=== PATIENT | male | born 1960 | race Caucasian/White ===

== ENCOUNTER → 2020-09-12 12:00 | Outpatient (BNVA) | payer OTHER, SELFPAY | PROVIDERS: Family Provider Internal Medicine; PCP Internal Medicine; Visit Provider Nurse Practitioner Family | DX: Z20.822 Contact with and (suspected) exposure to COVID-19 (principal) | CPT/HCPCS: 87635 ==

== ENCOUNTER 2021-06-16 20:00 | Outpatient (CLI) | payer OTHER, SELFPAY | END 2021-06-16 20:01 | disposition home or self-care (01) | LOC: SLEEP 06-17 07:39 | PROVIDERS: Family Provider Internal Medicine; PCP Family Medicine; Visit Provider Family Medicine | DX: G47.33 Obstructive sleep apnea (adult) (pediatric) (principal) | CPT/HCPCS: 95811 ==

== ENCOUNTER 2021-09-03 09:33 | Outpatient (CLI) | payer OTHER, SELFPAY ==
--- NOTE | 2021-09-03 09:47 | USCV_ITS ---
Silver Cameron Age: 61 Gender: M : 1960 Exam Date: 09/03/2021 10:15 Ordering Phys: Ailyn Vernon MD Technologist: FROYLAN [place] [facility] [place]: DIZZINESS Risk Factors: Previous Vascular Surgery: Right Brachial BP: / Left Brachial BP: / Right Left Velocity (cm/s) Spectral Plaque Velocity (cm/s) Spectral Plaque Syst/Diast Broadening Syst/Diast Broadening 119.10/23.20 Prox CCA 170.90/ 34.20 126.80/23.20 Mid CCA 132.30/ 29.80 110.30/23.20 Distal CCA 102.50/ 27.60 77.20/ 15.40 Prox ICA 100.30/ 20.90 86.00/ 24.30 Mid ICA 71.50 / 27.50 82.70/ 23.20 Distal ICA 101.40/ 39.70 131.20 ECA 118.00 0.68 ICA/CCA 0.59 Antegrade Vertebral Antegrade 68.40/ 17.60 cm/s 39.30/ 11.10 cm/s Tri Subclavian Tri 139.8 98.10 0 CONCLUSIONS Right ICA stenosis <50%. Left ICA stenosis <50%. Mild atheromatous plaque left carotid bulb/ICA. Normal antegrade Doppler flow noted in the right vertebral artery. Normal antegrade Doppler flow noted in the left vertebral artery. Marco Antonio Smith MD (Electronically Signed) Final Date: 04 September 2021 10:34 S
== END 2021-09-03 09:34 | disposition home or self-care (01) ==
PROVIDERS: PCP Family Medicine; Visit Provider Family Medicine
DX: R42 Dizziness and giddiness (principal)
CPT/HCPCS: 93880

== ENCOUNTER 2023-06-16 08:24 | Outpatient (CLI) | payer OTHER, SELFPAY ==
--- NOTE | 2023-06-16 08:41 | FL_ITS ---
WS: [id number] Barium swallow and esophagram, 06/16/2023 Clinical Data: Difficulty swallowing Comparison: None. Fluoroscopy time: 1min [id number] # of spot films: 28 Findings: The patient swallowed the thick and thin barium, and it flowed through the hypopharynx without hesita tion. No stricture, mass, polyp or erosion was seen. The barium entered the esophagus and there was normal motility throughout. There were occasional tert iary contractions there was a small hiatal hernia. There is minimal reflux. No mass, polyp, ulcer or fistula was seen. Impression: 1. Small hiatal hernia with minimal reflux. 2. Occasional tertiary contractions.
== END 2023-06-16 08:25 | disposition home or self-care (01) ==
LOC: RAD 08:25
PROVIDERS: PCP Family Medicine; Visit Provider Family Medicine
DX: R13.10 Dysphagia, unspecified (principal); K44.9 Diaphragmatic hernia without obstruction or gangrene
CPT/HCPCS: 74220

== ENCOUNTER → 2024-05-30 07:54 | Outpatient (BNVA) | payer OTHER, SELFPAY | PROVIDERS: PCP Family Medicine; Visit Provider Surgery | DX: Z12.11 Encounter for screening for malignant neoplasm of colon (principal) | CPT/HCPCS: 99204 ==

== ENCOUNTER 2024-06-29 07:48 | Day surgery (SDC) | payer OTHER, SELFPAY ==
[2024-06-29 07:58] VITALS: BP 143/97; PULSE 74; RESP 16; TEMP 36.2; O2SAT 96
--- NOTE | 2024-06-29 08:01 | P.HP_ITS ---
Same Day Surgery H&P Indication for Procedure/HPI DATE OF PROCEDURE: June 29, 2024 CHIEF COMPLAINT/INDICATIONFOR SURGICAL PROCEDURE: need for screening colonoscopy PREOP DIAGNOSIS: need for screening colonoscopy PLANNED PROCEDURE: Operation Date: 06/29/24 09:15 Proposed Procedures p Colonoscopy 53287 G0121 Z12.11(Not Applicable) - Trevor Waterman MD Medications/Allergies* Home Medications ?Medication ?Instructions ?Recorded ?Confirmed ?Type aspirin 81 mg tablet,delayed 81 mg PO DAILY 08/17/19 0 06/26/24 History release (Adult Low Dose Aspirin) ibuprofen 200 mg capsule 200 mg PO Q6H PRN Pain 08/1606/26/24 History glipizide 5 mg tablet 5 mg PO BID 09/12/20 5 History empagliflozin 10 mg tablet 10 mg PO DAILY 11/11/21 History (Jardiance) niacin 250 mg tablet 250 mg PO BID 11/11/2106/26 History ezetimibe 10 mg tablet 10 mg PO DAILY 05/15/2405/29 History semaglutide 1 mg/dose (4 mg/3 mL) 4 mg SUBCUT .QWEEK 0 05/30/24 06/26/24 History subcutaneous pen injector (Ozempic) insulin glargine 100 unit/mL See Rx Instructions .Rout e .COMPLEX 06/27/24 06/27/24 History subcutaneous solution Allergies/Adverse Reactions Allergy/AdvReac Type Severity Reaction Status Date / Time Alpha-Gal Allergy ADR-Diarrhe Verified 06/26/24 09:09 (Jgxqfdofm-Yxpee-0,3-Gala a sunflower seeds Allergy Severe ALGY-Swell Uncoded 06/26/24 09:09 Lip/Tongue/Throat Pertinent History/Comorbid Conditions* Social History Smoking and tobacco/nicotine status: never used tobacco/nicotine Alcohol intake: current Alcohol intake frequency: holidays/special occasions only Substance/Drug Use: never Pertinent Exam Findings alert, oriented x 3, clear to auscultation bilaterally and regular rate & rhythm Recommendations Surgery/Procedure today Coding Level of Care Code Acute Code for Chg Fwd
--- NOTE | 2024-06-29 08:01 | W.PM.OPSFHP ---
Same Day Surgery H&P Indication for Procedure/HPI DATE OF PROCEDURE: June 29, 2024 CHIEF COMPLAINT/INDICATIONFOR SURGICAL PROCEDURE: need for screening colonoscopy PREOP DIAGNOSIS: need for screening colonoscopy PLANNED PROCEDURE: Operation Date: 06/29/24 09:15 Proposed Procedures p Colonoscopy 59553 G0121 Z12.11(Not Applicable) - Trevor Waterman MD Medications/Allergies* Home Medications ?Medication ?Instructions ?Recorded ?Confirmed ?Type aspirin 81 mg tablet,delayed 81 mg PO DAILY 08/17/19 06/26/24 History release (Adult Low Dose Aspirin) ibuprofen 200 mg capsule 200 mg PO Q6H PRN Pain 08/17/19 06/26/24 History glipizide 5 mg tablet 5 mg PO BID 09/12/20 06/26/24 History empagliflozin 10 mg tablet 10 mg PO DAILY 11/11/21 06/26/24 History (Jardiance) niacin 250 mg tablet 250 mg PO BID 11/11/21 06/26/24 History ezetimibe 10 mg tablet 10 mg PO DAILY 05/15/24 06/26/24 History semaglutide 1 mg/dose (4 mg/3 mL) 4 mg SUBCUT .QWEEK 05/30/24 06/26/24 History subcutaneous pen injector (Ozempic) insulin glargine 100 unit/mL See Rx Instructions .Route .COMPLEX 06/27/24 06/27/24 History subcutaneous solution Allergies/Adverse Reactions Allergy/AdvReac Type Severity Reaction Status Date / Time Alpha-Gal Allergy ADR-Diarrhe Verified 06/26/24 09:09 (Vnxmirzqj-Dxest-4,3-Gala a sunflower seeds Allergy Severe ALGY-Swell Uncoded 06/26/24 09:09 Lip/Tongue/Throat Pertinent History/Comorbid Conditions* Social History Smoking and tobacco/nicotine status: never used tobacco/nicotine Alcohol intake: current Alcohol intake frequency: holidays/special occasions only Substance/Drug Use: never Pertinent Exam Findings alert, oriented x 3, clear to auscultation bilaterally and regular rate & rhythm Recommendations Surgery/Procedure today Coding Level of Care Code Acute Code for Chg Yadi
--- NOTE | 2024-06-29 08:12 | ANES.PREANE2 ---
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 Michelle taken within 24 hours: N/A Was Clonidine taken within 24 hours: N/A Last intake: Intake Last Liquid Date 06/28/24 Last Liquid Time 21:00 Last Solid Date 06/27/24 Last Solid Time 20:00 Social No alcohol and No tobacco Exam alert, oriented x 3, clear to auscultation bilaterally and regular rate & rhythm Airway Mallampati: Class IV Dentition: other (missing) Metabolic Diabetes Mellitus and Morbid Obesity Anesthetic Plan ASA status: 3 Anesthesia: MAC Risk of > 500 ml blood loss (7ml/kg in children): No Medications/Allergies Home Medications ?Medication ?Instructions ?Recorded ?Confirmed ?Last Taken ?Type aspirin 81 mg tablet,delayed 81 mg PO DAILY 08/17/19 06/26/24 06/26/24 History release (Adult Low Dose Aspirin) ibuprofen 200 mg capsule 200 mg PO Q6H PRN Pain 08/17/19 06/26/24 06/28/24 History glipizide 5 mg tablet 5 mg PO BID 09/12/20 06/26/24 06/26/24 History empagliflozin 10 mg tablet 10 mg PO DAILY 11/11/21 06/26/24 06/26/24 History (Jardiance) niacin 250 mg tablet 250 mg PO BID 11/11/21 06/26/24 06/28/24 History ezetimibe 10 mg tablet 10 mg PO DAILY 05/15/24 06/26/24 06/28/24 History semaglutide 1 mg/dose (4 mg/3 mL) 4 mg SUBCUT .QWEEK 05/30/24 06/26/24 06/19/24 History subcutaneous pen injector (Ozempic) insulin glargine 100 unit/mL See Rx Instructions .Route .COMPLEX 06/27/24 06/27/24 06/27/24 History subcutaneous solution Allergies Allergy/AdvReac Type Severity Reaction Status Date / Time Alpha-Gal Allergy ADR-Diarrhe Verified 06/26/24 09:09 (Hzeireucs-Dawhs-2,3-Gala a sunflower seeds Allergy Severe ALGY-Swell Uncoded 06/26/24 09:09 Lip/Tongue/Throat PFS Anesthesia Social History Smoking and tobacco/nicotine status: never used tobacco/nicotine Alcohol intake: current Alcohol intake frequency: holidays/special occasions only Substance/Drug Use: never Data Anesthesia Cardiac Studies: No Data to Display
[2024-06-29 08:17] LABS: Glucose Point of Care 108 mg/dL (70-110)
[2024-06-29] MEDS: sodium chloride 0.9% 1,000 ML 15 ML IV (08:18)
[2024-06-29 09:15] VITALS: BP 122/68; PULSE 70; RESP 18; TEMP 36.1; O2SAT 92
[2024-06-29 09:32] VITALS: BP 120/76; PULSE 70; RESP 18; O2SAT 94
--- NOTE | 2024-06-29 09:55 | ANE.PACU2 ---
Inpatient post-anesthesia follow up: Airway intact: Yes Vital signs: Temperature 97 F Pulse Rate 70 Respiratory Rate 18 Blood Pressure 120/76 Pulse Oximetry 94 Oxygen Delivery Me thod Room Air Oxygen Flow Rate Fraction of Inspir ed Oxygen Hydration adequate: Yes Nausea and vomiting: No Pain level: 1 Mental status: Baseline
== END 2024-06-29 09:57 | disposition home or self-care (01) ==
PROVIDERS: PCP Family Medicine; Visit Provider Surgery
PROC: 0DJD8ZZ Inspection of Lower Intestinal Tract, Via Natural or Artificial Opening Endoscopic (ICD-10-PCS; CPT 45378; principal; 2024-06-29 09:15)
DX: Z12.11 Encounter for screening for malignant neoplasm of colon (principal); K64.8 Other hemorrhoids; K62.89 Other specified diseases of anus and rectum; K62.1 Rectal polyp; E66.01 Morbid (severe) obesity due to excess calories; Z68.41 Body mass index [BMI] 40.0-44.9, adult; E11.9 Type 2 diabetes mellitus without complications; Z79.82 Long term (current) use of aspirin; Z79.85 Long-term (current) use of injectable non-insulin antidiabetic drugs; Z79.84 Long term (current) use of oral hypoglycemic drugs; Z79.4 Long term (current) use of insulin; Z79.899 Other long term (current) drug therapy
CPT/HCPCS: 36416; 45380; 45385; 82962; 88305; J2704; J7030

== ENCOUNTER → 2024-07-19 08:22 | Outpatient (BNVA) | payer OTHER, SELFPAY | PROVIDERS: PCP Family Medicine; Visit Provider Surgery | DX: Z09 Encounter for follow-up examination after completed treatment for conditions other than malignant neoplasm (principal) | CPT/HCPCS: 99213 ==

== ENCOUNTER → 2025-03-12 07:47 | Outpatient (BNVA) | payer OTHER, SELFPAY | PROVIDERS: PCP Family Medicine; Visit Provider Podiatrist Foot & Ankle Surgery | DX: E11.42 Type 2 diabetes mellitus with diabetic polyneuropathy (principal); Q82.8 Other specified congenital malformations of skin; Z79.4 Long term (current) use of insulin; Z79.85 Long-term (current) use of injectable non-insulin antidiabetic drugs | CPT/HCPCS: 17110; 99204 ==